=== PATIENT | male | born 1985 | race Caucasian/White ===

== ENCOUNTER 2017-07-27 07:56 | Emergency (ER) | payer BC, OTHER ==
[2017-07-27] MEDS ORDERED: Proparacaine 0.5% Ophth Soln 15 ML Bottle EYELF ONE (08:16)
[2017-07-27] MEDS ORDERED: Erythromycin Base 0.5% Ophth Oint 1 GM Tube EYEBOTH ONE (08:50)
--- NOTE | 2017-07-27 08:57 | EDM.PDOC ---
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 Patient states he thinks he got something in his eye. 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 He said there was a lot of debris, dust, water and dirt, etc. and something may have gotten in his eye, but he did not notice it acutely. His vision is normal but while he was laying down last night he perceived a gradual onset of irritation in that eye this morning is more red it continues to be irritated with a foreign body type sensation. Patient otherwise feels well without complaint] Review of systems: As per history of present illness and below otherwise all systems reviewed and negative. Past medical history: As per history of present illness and as reviewed below otherwise noncontributory. Surgical history: As per history of present illness and as reviewed below otherwise noncontributory. Social history: No reported history of drug or alcohol abuse. Family history: As per history of present illness and as reviewed below otherwise noncontributory. Physical exam: Well-appearing patient acute distress left eye is injected. No visible corneal defect or foreign body with magnification and visual exam. Normal and painless direct and consensual pupillary reflex. Normal anterior chamber. Both lids everted no visible foreign body. Patient with complete relief with single drop of Alcaine. No fluorescein dye uptake corneal, conjunctival, or mucosal defect of the lids of his left eye. Right eye normal HEENT: Normocephalic, atraumatic, pupils normal and symmetrical, supple neck, no meningismus, normal color Lungs: Normal and symmetrical chest wall excursion bilateral with no tachypnea or increased work of breathing, grossly normal chest exam Heart: No tachycardia in triage Abdomen: Normal-appearing, nondistended, no visible mass or asymmetry Pelvis: Normal-appearing Genitourinary: Deferred Rectal exam: Deferred Extremities: Atraumatic, normal use and range of motion, no visible evidence of gross neurovascular compromise Neuro: Awake, alert, oriented. Normal and appropriate mental status. Cranial nerves grossly unremarkable. Motor function normal. Nonfocal neurologic exam. Diagnostics: [Bailey lamp exam by KIN Hunt. Patient sitting. Alcaine instilled with complete relief of discomfort and irritation. Fluorescein instilled with a drop of Alcaine. No areas of dye uptake corneal defect appreciated with Bailey lamp. Patient tolerated well no complications Therapeutics: [Alcaine and erythromycin ophthalmic ointment administered] Impression: [] Plan: [Discussed with patient signs and symptoms are consistent with conjunctivitis however etiology of this conjunctivitis is unclear. No clinical evidence of foreign body or corneal injury. We discussed at length possibilities including viral conjunctivitis, bacterial conjunctivitis, allergic conjunctivitis though this is less likely since it's just my, and chemical or substance induced conjunctivitis which appears to be most likely given the patient was working in a pit in the ground doing physical labor yesterday evening. We discussed is likely that something flew into his eye that did not cause him any significant discomfort however resulted in irritation and inflammation which he evolved shortly thereafter. 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 His tetanus is up-to-date Definitive disposition and diagnosis as appropriate pending reevaluation and review of above. Left Eye Pain Score (Numeric/FACES): 5 - Related Data Allergies Allergy/AdvReac Type Severity Reaction Status Date / Time No Known Allergies Allergy Verified 03/04/15 14:08 Home Meds: Home Meds . [No Known Home Meds] 06/19/14 [History] Past Medical History - Past Health History Medical/Surgical History: Denies Medical/Surgical History - Past Surgical History Musculoskeletal Surgical History: Reports: Shoulder Surgery Other Musculoskeletal Surgeries/Procedures:: L shoulder, screws Social & Family History - Tobacco Use Smoking Status *Q: Never Smoker Second Hand Smoke Exposure: No - Caffeine Use Caffeine Use: Reports: Coffee - Alcohol Use Days Per Week of Alcohol Use: 2 Number of Drinks Per Day: 2 Total Drinks Per Week: 4 - Recreational Drug Use Recreational Drug Use: No ED ROS GENERAL - Review of Systems Review Of Systems: See Below (History of present illness) ED EXAM GENERAL W FULL EYE - Physical Exam Exam: See Below (History of present illness) Course - Vital Signs Last Recorded V/S: Last Vital Signs Temp 36.1 C 07/27/17 08:04 Pulse 61 07/27/17 08:04 Resp 18 07/27/17 08:04 BP 139/78 07/27/17 08:04 Pulse Ox 98 07/27/17 08:04 - Orders/Labs/Meds Orders: Active Orders 24 hr Category Date Time Status Erythromycin Base [Erythromycin 0.5% Ophth Oint] Med 07/27/17 08:50 Once 1 gm EYEBOTH ONETIME ONE Meds: Medications Discontinued Medications Generic Name Dose Route Start Last Admin Trade Name Freq PRN Reason Stop Dose Admin Proparacaine HCl 1 ml 07/27/17 08:16 07/27/17 08:24 Proparacaine 0.5% Ophth Soln EYELF 07/27/17 08:17 1 ml ONETIME ONE Administration Departure - Departure Time of Disposition: 08:51 Disposition: Home, Self-Care 01 Condition: Good Clinical Impression: Acute conjunctivitis, left eye - Discharge Information Referrals: PCP,None [Primary Care Provider] - Additional Instructions: It appears that you have conjunctivitis in your left eye. No foreign body is visible on your cornea, sclera (which is the white part),or under either lid when they were everted for inspection. There was no fluorescein dye uptake on the surface of your eye to indicate a corneal injury or subtle foreign body. Given that you were working in a pit in the ground last night before the onset of these symptoms it seems most likely that something got in your eye and is now causing irritation which would technically be described as chemical or substance induced conjunctivitis. You mentioned that your tetanus shot was up-to -date. Apply bb size bead of erythromycin ophthalmic ointment 4 times a day and at bedtime until follow-up with your eye doctor tomorrow. Use "sootheXP" lipid based eye drops between treatments. - My Orders Last 24 Hours: My Active Orders 07/27/17 08:50 Erythromycin Base [Erythromycin 0.5% Ophth Oint] 1 gm EYEBOTH ONETIME ONE - Assessment/Plan Last 24 Hours: My Active Orders 07/27/17 08:50 Erythromycin Base [Erythromycin 0.5% Ophth Oint] 1 gm EYEBOTH ONETIME ONE
[2017-07-27 09:09] VITALS: BP 145/97
== END 2017-07-27 09:06 | disposition home or self-care (01) ==
LOC: MW.ED 07:56
DX: H10.32 Unspecified acute conjunctivitis, left eye (principal)
CPT/HCPCS: 99283; A9270; 99282

== ENCOUNTER 2018-07-12 14:38 | Emergency (ER) | payer BC, OTHER ==
--- NOTE | 2018-07-12 15:34 | CR ---
EXAMINATION: Left knee HISTORY: Pain COMPARISON: 10/16/2008 TECHNIQUE: 3 views FINDINGS/IMPRESSION: There is no acute osseous abnormality, dislocation, or fracture. No joint effusi on. Joint spaces are preserved.
--- NOTE | 2018-07-12 15:44 | EDM.PDOC ---
ED HPI GENERAL MEDICAL PROBLEM - General Chief Complaint: Lower Extremity Injury/Pain Stated Complaint: LT LEG HURTS Time Seen by Provider: 07/12/18 14:41 - History of Present Illness INITIAL COMMENTS - FREE TEXT/NARRATIVE: HISTORY AND PHYSICAL: []32-year-old male presenting with some left knee pain History of Present Illness: []Has been off and on for the last several days no known injury Review of Systems: As per history of present illness and below otherwise all systems reviewed and negative. Past medical history: As per history of present illness and as reviewed below otherwise noncontributory. Surgical history: As per history of present illness and as reviewed below otherwise noncontributory. Social history: No reported history of drug or alcohol abuse. Family history: As per history of present illness and as reviewed below otherwise noncontributory. Physical exam: Learning oriented male answering questions appropriately in full sentences without any breath HEENT: Atraumatic, normocehpalic, pupils reactive, negative for conjunctival pallor or scleral icterus, mucous membranes moist, throat clear, neck supple, nontender, trachea midline. Lungs: Clear to auscultation, breath sounds equal bilaterally, chest non tender. Heart: S1S2, regular, negative for clicks, rubs, or JVD. Abdomen: Soft, nondistended, nontender. Negative for masses or hepatossplenmegaly. Negative for costovertebral tenderness. Pelvis: Stable nontender. Genitourinary: Deferred. Rectal: Deferred Extremities: Atraumatic, negative for cords or calf pain. No laxity with Kari's no pain with full range of motion is present.No decrease in strength Neurovascular unremarkable. Neuro: Awake, alert, oriented. Cranial nerves II through XII unremarkable. Cerebellum unremarkable. Motor and sensory unremarkable throughout. Exam nonfocal. Discussed with the patient that there are no signs of any fluid fracture or abnormalities on the x-ray Diagnostics: []Knee x-ray Therapeutics: []Jaydon wrap Impression: []Left knee pain Plan: []Follow-up with your primary care provider or application integration specialist [facility] Building [address] [place] [address], [address] [place] [address] Ibuprofen [id number] for discomfort or any swelling Return to emergency room as directed and discussed Definitive disposition and diagnosis as appropriate pending reevaluation and review of above. Onset: Gradual Duration: Day(s): Location: Reports: Lower Extremity, Left Quality: Reports: Ache Severity: Mild Improves with: Reports: None Worsens with: Reports: None Associated Symptoms: Reports: No Other Symptoms left leg Pain Score (Numeric/FACES): 6 - Related Data Allergies Allergy/AdvReac Type Severity Reaction Status Date / Time No Known Allergies Allergy Verified 03/04/15 14:08 Home Meds: Home Meds . [No Known Home Meds] 06/19/14 [History] Past Medical History - Past Health History Medical/Surgical History: Denies Medical/Surgical History - Infectious Disease History Infectious Disease History: Reports: None - Past Surgical History Musculoskeletal Surgical History: Reports: Shoulder Surgery Other Musculoskeletal Surgeries/Procedures:: L shoulder, screws Social & Family History - Family History Family Medical History: Noncontributory - Tobacco Use Smoking Status *Q: Never Smoker - Caffeine Use Caffeine Use: Reports: Coffee - Recreational Drug Use Recreational Drug Use: No Review of Systems - Review of Systems Review Of Systems: ROS reveals no pertinent complaints other than HPI. ED EXAM, GENERAL - Physical Exam Exam: See Below (see dictation) Course - Vital Signs Last Recorded V/S: Last Vital Signs Temp 36.3 C 07/12/18 14:53 Pulse 62 07/12/18 14:53 Resp 20 07/12/18 14:53 BP 140/80 07/12/18 14:53 Pulse Ox 98 07/12/18 14:53 Departure - Departure Time of Disposition: 15:42 Disposition: Home, Self-Care 01 Condition: Good Clinical Impression: Painful knee Qualifiers: Chronicity: acute Laterality: left Qualified Code(s): M25.562 - Pain in left knee - Discharge Information Instructions: Knee Pain, Adult Referrals: PCP,None [Primary Care Provider] - Additional Instructions: The following information is given to patients seen in the emergency department who are being discharged to home. This information is to outline your options for follow-up care. We provide all patients seen in our emergency department with a follow-up referral. The need for follow-up, as well as the timing and circumstances, are variable depending upon the specifics of your emergency department visit. If you don't have a primary care physician on staff, we will provide you with a referral. We always advise you to contact your personal physician following an emergency department visit to inform them of the circumstance of the visit and for follow-up with them and/or the need for any referrals to a consulting specialist. The emergency department will also refer you to a specialist when appropriate. This referral assures that you have the opportunity for followup care with a specialist. All of these measure are taken in an effort to provide you with optimal care, which includes your followup. Under all circumstances we always encourage you to contact your private physician who remains a resource for coordinating your care. When calling for followup care, please make the office aware that this follow-up is from your recent emergency room visit. If for any reason you are refused follow-up, please contact the [facility] emergency department at and asked to speak to the emergency department charge nurse. Follow-up with your primary care provider or application integration specialist [facility] Professional [address], [address] [place] [address] Ibuprofen [id number] for discomfort or any swelling Return to emergency room as directed and discussed
[2018-07-12 16:51] VITALS: BP 132/77
== END 2018-07-12 16:01 | disposition home or self-care (01) ==
LOC: MW.ED 14:38
DX: M25.562 Pain in left knee (principal)
CPT/HCPCS: 73562-26-LT; 73562-LT; 99283

== ENCOUNTER 2019-07-23 15:36 | Emergency (ER) | payer BC, OTHER ==
[2019-07-23 15:49] VITALS: BP 127/84; PULSE 110
[2019-07-23] MEDS ORDERED: Dexamethasone 10 MG/ML SDV IVPUSH ONE (16:13)
[2019-07-23] MEDS ORDERED: Sodium Chloride 0.9% 1,000 ML IV ONE (16:13)
--- NOTE | 2019-07-23 16:14 | EDM.PDOC ---
ED HPI GENERAL MEDICAL PROBLEM - General Chief Complaint: ENT Problem Stated Complaint: THROAT COMPLAINT Time Seen by Provider: 07/23/19 16:13 Source of Information: Reports: Patient - History of Present Illness INITIAL COMMENTS - FREE TEXT/NARRATIVE: HISTORY AND PHYSICAL: History of present illness: [Patient presents with sore throat difficulty speaking slightly muffled voice no drooling or trismus no fever nausea vomiting chills sweats He was seen yesterday in [facility] and provided a gram of Rocephin started on Cleocin] presents as such Review of systems: As per history of present illness and below otherwise all systems reviewed and negative. Past medical history: As per history of present illness and as reviewed below otherwise noncontributory. Surgical history: As per history of present illness and as reviewed below otherwise noncontributory. Social history: No reported history of drug or alcohol abuse. Family history: As per history of present illness and as reviewed below otherwise noncontributory. Physical exam: HEENT: Atraumatic, normocephalic, pupils reactive, negative for conjunctival pallor or scleral icterus, mucous membranes moist, throat clear, neck supple, nontender, trachea midline. moderate erythema of the oropharynx with swelling of the tonsils left greater than right Lungs: Clear to auscultation, breath sounds equal bilaterally, chest nontender. Heart: S1S2, regular, negative for clicks, rubs, or JVD. Abdomen: Soft, nondistended, nontender. Negative for masses or hepatosplenomegaly. Negative for costovertebral tenderness. Pelvis: Stable nontender. Genitourinary: Deferred. Rectal: Deferred. Extremities: Atraumatic, negative for cords or calf pain. Neurovascular unremarkable. Neuro: Awake, alert, oriented. Cranial nerves II through XII unremarkable. Cerebellum unremarkable. Motor and sensory unremarkable throughout. Exam nonfocal. Diagnostics: [ CBC BMP CT soft tissue neck ] Therapeutics: [ Decadron 10 mg IV Patient discussed with Dr. holloway ENT on-call [facility] ]-we will send the patient over by private vehicle with copy of CT and lab as requested Impression: [ left tonsillar abscess ] Definitive disposition and diagnosis as appropriate pending reevaluation and review of above. Left Throat Pain Score (Numeric/FACES): 9 - Related Data Allergies Allergy/AdvReac Type Severity Reaction Status Date / Time No Known Allergies Allergy Verified 07/23/19 15:49 Home Meds: Home Meds Clindamycin HCl [Cleocin] 150 mg PO BID 07/23/19 [History] Ibuprofen 600 mg PO TID 07/23/19 [History] Past Medical History - Past Health History Medical/Surgical History: Denies Medical/Surgical History - Infectious Disease History Infectious Disease History: Reports: None - Past Surgical History Musculoskeletal Surgical History: Reports: Shoulder Surgery Other Musculoskeletal Surgeries/Procedures:: L shoulder, screws Social & Family History - Family History Family Medical History: Noncontributory - Tobacco Use Smoking Status *Q: Never Smoker - Caffeine Use Caffeine Use: Reports: Coffee - Recreational Drug Use Recreational Drug Use: No ED ROS GENERAL - Review of Systems Review Of Systems: See Below ED EXAM, GENERAL - Physical Exam Exam: See Below Course - Vital Signs Last Recorded V/S: Last Vital Signs Temp 97.3 F 07/23/19 15:44 Pulse 110 H 07/23/19 15:44 Resp 16 07/23/19 15:44 BP 127/84 07/23/19 15:44 Pulse Ox 97 07/23/19 15:44 - Orders/Labs/Meds Labs: Laboratory Tests 07/23/19 07/23/19 Range/Units 16:48 16:48 WBC 16.87 H (4.0-11.0) K/uL RBC 4.97 (4.50-5.90) M/uL Hgb 15.1 (13.0-17.0) g/dL Hct 44.1 (38.0-50.0) % MCV 88.7 (80.0-98.0) fL MCH 30.4 (27.0-32.0) pg MCHC 34.2 (31.0-37.0) g/dL RDW Std Deviation 40.4 (28.0-62.0) fl RDW Coeff of [place] 13 (11.0-15.0) % Plt Count 282 (150-400) K/uL MPV 9.80 (7.40-12.00) fL Neut % (Auto) 81.2 H (48.0-80.0) % Lymph % (Auto) 10.6 L (16.0-40.0) % [place] % (Auto) 7.9 (0.0-15.0) % Eos % (Auto) 0.2 (0.0-7.0) % Baso % (Auto) 0.1 (0.0-1.5) % Neut # (Auto) 13.7 H (1.4-5.7) K/uL Lymph # (Auto) 1.8 (0.6-2.4) K/uL [place] # (Auto) 1.3 H (0.0-0.8) K/uL Eos # (Auto) 0.0 (0.0-0.7) K/uL Baso # (Auto) 0.0 (0.0-0.1) K/uL Nucleated RBC % 0.0 /100WBC Nucleated RBCs # 0 K/uL Sodium 141 (136-148) mmol/L Potassium 3.5 (3.5-5.1) mmol/L Chloride 104 (98-107) mmol/L Carbon Dioxide 26.5 (21.0-32.0) mmol/L BUN 11 (7.0-18.0) mg/dL Creatinine 1.0 (0.8-1.3) mg/dL Est Cr Clr Drug Dosing 116.40 mL/min Estimated GFR (MDRD) > 60.0 ml/min Glucose 103 (74-106) mg/dL Calcium 8.9 (8.5-10.1) mg/dL Meds: Medications Discontinued Medications Generic Name Dose Route Start Last Admin Trade Name Freq PRN Reason Stop Dose Admin Dexamethasone 10 mg 07/23/19 16:13 07/23/19 16:42 Dexamethasone IVPUSH 07/23/19 16:14 10 mg ONETIME ONE Administration Sodium Chloride 1,000 mls @ 999 mls/hr 07/23/19 16:13 07/23/19 16:28 Normal Saline IV 07/23/19 17:13 999 mls/hr STAT ONE Administration Sodium Chloride Confirm 07/23/19 16:55 Normal Saline Administered 07/23/19 16:56 Dose 20 mls @ as directed .ROUTE .STK-MED ONE Iopamidol 75 ml 07/23/19 17:46 07/23/19 17:48 Isovue Multipack-370 (76%) IVPUSH 07/23/19 17:47 75 ml ONETIME STA Administration Pantoprazole Sodium 80 mg 07/23/19 16:45 07/23/19 17:00 Protonix Iv IVPUSH 07/23/19 16:46 80 mg .BOLUS ONE Administration Departure - Departure Time of Disposition: 18:43 Disposition: Home, Self-Care 01 Condition: Good Clinical Impression: Tonsillar abscess - Discharge Information Referrals: PCP,Unknown [Primary Care Provider] - Forms: ED Department Discharge Additional Instructions: Remain no food or water by mouth Presented to [facility] emergency room for Dr. holloway_ENT conventional mortgage underwriter as he will be expecting a tonight to attempt drainage Copy of CT report and disk provided as well as lab The following information is given to patients seen in the emergency department who are being discharged to home. This information is to outline your options for follow-up care. We provide all patients seen in our emergency department with a follow-up referral. The need for follow-up, as well as the timing and circumstances, are variable depending upon the specifics of your emergency department visit. If you don't have a primary care physician on staff, we will provide you with a referral. We always advise you to contact your personal physician following an emergency department visit to inform them of the circumstance of the visit and for follow-up with them and/or the need for any referrals to a consulting specialist. The emergency department will also refer you to a specialist when appropriate. This referral assures that you have the opportunity for follow-up care with a specialist. All of these measure are taken in an effort to provide you with optimal care, which includes your follow-up. Under all circumstances we always encourage you to contact your private physician who remains a resource for coordinating your care. When calling for follow-up care, please make the office aware that this follow-up is from your recent emergency room visit. If for any reason you are refused follow-up, please contact the [facility] emergency department at and asked to speak to the emergency department charge nurse.
[2019-07-23] MEDS ORDERED: Pantoprazole 40 MG Vial IVPUSH ONE (16:45)
[2019-07-23] MEDS ORDERED: Sodium Chloride 0.9% 20 ML ONE (16:55)
[2019-07-23 17:07] LABS: BLOOD UREA NITROGEN,BUN 11 mg/dL (7.0-18.0); CARBON DIOXIDE,CO2 26.5 mmol/L (21.0-32.0); CHLORIDE,CL 104 mmol/L (98-107); GLUCOSE RANDOM 103 mg/dL (74-106); POTASSIUM,K 3.5 mmol/L (3.5-5.1); SODIUM,NA 141 mmol/L (136-148)
[2019-07-23] MEDS ORDERED: Iopamidol 755 MG/ML 500 ML Multipack Bottle IVPUSH STA (17:46)
--- NOTE | 2019-07-23 18:11 | CT ---
INDICATION: pain, swelling and rule out abscess TECHNIQUE: CT of the neck with 75 cc Isovue 370 IV iodinated contrast agent. Coronal and sagittal reconstructions. COMPARISON: No prior studies available for comparison at this institution. FINDINGS: There is a 1.9 x 1 cm rim enhancing collection in the left palatine tonsil consistent with tonsillar abscess (image 39 series 201). There is moderate soft tissue swelling of the left tonsil and parapharyngeal soft tissues with fat stranding in the left parapharyngeal fat. There is moderate pharyngeal soft tissue swelling extending inferiorly to the level of the left base of the epiglottis with effacement of the left piriform recess and the left vallecula. Partial effacement of the airway with no evidence of airway compromise. The right palatine tonsil is unremarkable. Edema and enhancement of left submandibular gland consistent with reactive sialoadenitis. Enlarged left level II lymph nodes are likely reactive in etiology. The parotid glands, right submandibular gland, thyroid gland are normal in appearance. All the major vascular structures opacify normally with contrast material. Mild mucosal thickening in the maxillary sinuses. The mastoid air cells are clear. The nasal septum is deviated to the left. The oral cavity, pharyngeal and laryngeal spaces are normal in appearance. No periapical lucencies surrounding the visualized teeth. The suprahyoid and infrahyoid spaces are normal. No lytic or blastic process within the imaged osseous structures. The paraspinous muscles are symmetric and normal in appearance. Visualized portions of the brain are within normal limits. The orbital contents are normal. No abnormality is demonstrated in the mediastinum or supraclavicular regions. No pneumothorax or pleural effusion. The visualized pulmonary apices are clear. Findings called to Dr. Bernal at 6:07 pm. IMPRESSION: 1. Acute left palatine tonsillitis with 1.9 x 1 cm intratonsillar abscess. 2. There is moderate adjacent inflammation involving the left parapharyngeal space and left pharyngeal edema extending inferiorly to the base of the left epiglottis with effacement of the vallecula and left piriform recess consistent with acute pharyngitis. 3. Edema and enhancement of left submandibular gland consistent with reactive sialoadenitis. 4. Enlarged reactive left level II cervical lymph nodes. Please note that all CT scans at this facility use dose modulation, iterative reconstruction, and/or weight-based dosing when appropriate to reduce radiation dose to as low as reasonably achievable. Dictated by Mina Rose MD @ Jul 23 2019 5:56PM Signed by Dr. Mina Rose @ Jul 23 2019 6:09PM
== END 2019-07-23 19:18 | disposition home or self-care (01) ==
LOC: MW.ED 15:36
DX: J36 Peritonsillar abscess (principal); Z79.899 Other long term (current) drug therapy
CPT/HCPCS: 36415; 70491; 80048; 85025; 96361; 96374; 96375; 99283; C9113; J1100; J7040; Q9967

== ENCOUNTER 2022-04-21 21:39 | Emergency (ER) | payer BC, OTHER ==
[2022-04-21] MEDS ORDERED: Albuterol 8 GM Inhaler INH STA (23:28)
[2022-04-21 23:47] LABS: CORONAVIRUS COVID-19 NAA POSITIVE (NEGATIVE); INFLUENZA A NAA NEGATIVE (NEGATIVE); INFLUENZA B NAA NEGATIVE (NEGATIVE)
[2022-04-22 00:17] VITALS: BP 132/76; PULSE 76
== END 2022-04-22 00:17 | disposition home or self-care (01) ==
LOC: MW.ED 21:39
DX: U07.1 COVID-19 (principal)
CPT/HCPCS: 0240U; 99283; A9270; 99284